=== PATIENT | male | born 1990 | race Caucasian/White ===

== ENCOUNTER 2024-10-19 08:36 | Outpatient (AMB) | payer OTHER, SELFPAY ==
--- NOTE | 2024-10-19 08:42 | MHC.PC.OV ---
Vital Signs 10/19/24 08:46 Height 5 ft 5 in Weight 179 lb 4 oz BMI 29.8 BP 110/60 Blood Pressure Location Lt brachial Position Sitting Respiration 16 Pulse 80 Pulse Source Pulse Oximeter Temp 98.0 F Temp Source Oral Pulse Oximetry (%) 95 Oxygen Delivery Method Room Air Intake Visit Reasons: Stomach pain , rectum bleeding Intake Note: abd pain and rectal bleeding Allergies No Known Allergies [No Known Allergies*] Allergy (Verified 10/19/24 08:43) Medication List - Last Reconciled 10/19/24 by Yvan Jack MD buprenorphine-naloxone 4-1 mg (Suboxone) 1 film sublingual BID bupropion HCl XL 150 mg PO DAILY HPI Stomach pain , rectum bleeding HPI Details 34 y/o male presents today with complaints of abdominal pain. Reports hard bowel movements. Reports blood on toilet paper. Patient?is?on?methadone?x5?years Tries?to?drink?plenty?of?fluids Had?been?using?senna?has?not?lately HPI Comments History of Present Illness Details Documentation assistance for Yvan Jack MD, was provided by Jean Carlos Barrientos,? Sorting Supervisor on 10/19/2024 at 9:11 AM EST. I, Dr. Jack, have read, observed, and verified documentation. ?? Questionnaire PHQ-9 Over the last 2 weeks, how often have you been bothered by any of the following problems? 1. Little interest or pleasure in doing things: not at all 2. Feeling down, depressed, or hopeless: not at all 3. Trouble falling or staying asleep, or sleeping too much: not at all 4. Feeling tired or having little energy: more than half the days 5. Poor appetite or overeating: more than half the days 6. Feeling bad about yourself - or that you are a failure or have let yourself or your family down: not at all 7. Trouble concentrating on things, such as reading the newspaper or watching television: not at all 8. Moving or speaking so slowly that other people could have noticed. Or the opposite - being so fidgety or restless that you have been moving around a lot more than usual: not at all 9. Thoughts that you would be better off or of hurting yourself in some way: not at all Total score: 4 Source: Developed by Drs. Arron Merritt, Jacob Turner and colleagues, with an educational dayan from [employer]. Thrive Questionnaire I am a: Patient What is your living situation today?: I have a steady place to live Within the past 12 months, did the food you bought not last and you didn't have the money to get more?: Sometimes True Within the past 12 months, did you worry whether your food would run out before you got money to buy more?: Sometimes True Do you have trouble paying for medicines?: No Do you have trouble getting transportation to medical appointments?: No Do you have trouble paying your heating and electricity bill?: No Do you have trouble taking care of your child, family member or friend?: No Do you have trouble with day-to-day activities such as bathing, preparing meals, shopping, managing finances, etc.?: No Are you currently unemployed and looking for a job?: No Are you interested in more education?: I choose not to answer this question Please select the resources that you would like help with: None Currently or been in a relationship where the following occur: I choose not to answer THRIVE Score: 2 AUDIT C Alcohol Use Questionnaire (AUDIT-C) 1. How often do you have a drink containing alcohol?: Never Total Score: 0 FERNANDA-7 AMB Questionnaire FERNANDA-7 Feeling nervous, anxious, or on edge: 0 = Not at all Not being able to stop or control worryin = Not at all Worrying too much about different things: 0 = Not at all Trouble relaxin = Not at all Being so restless that it is hard to sit still: 0 = Not at all Becoming easily annoyed or irritable: 0 = Not at all Feeling afraid as if something awful might happen: 0 = Not at all Total FERNANDA-7 score (0-4 normal; 5-9 mild; 10-14 moderate; 15-21 severe): 0 Source: Developed by Drs. Arron Merritt, Jacob Turner and colleagues, with an educational dayan from [employer]. Review of Systems Const Denies chills, Denies fatigue, Denies fever(s), Denies headache(s) and Denies weakness ENT Denies dizziness and Denies headache(s) Card Denies dyspnea Resp Denies cough, Denies dyspnea, Denies wheezing and Denies other (shortness of breath) GI Reports constipation Musc Denies numbness and Denies tingling Neuro Denies dizziness, Denies headache(s), Denies numbness, Denies tingling and Denies weakness Psych Denies anxiety and Denies depression Endo Denies fatigue Aller/Immun Denies wheezing Physical exam (Primary Care) Vital Signs: Last Vital Signs Temp 98.0 F 10/19/24 08:46 Pulse 80 10/19/24 08:46 Resp 16 10/19/24 08:46 BP 110/60 10/19/24 08:46 Pulse Ox 95 10/19/24 08:46 Oxygen Delivery Method Room Air 10/19/24 08:46 BMI result Body Mass Index 29.8 PHQ-9: PHQ-9 Score PHQ-9: Total score 4 10/19/24 08:59 Currently or been in a relationship where the following occur: I choose not to answer Const General: well developed; No acute distress Nutritional Appearance: well nourished Orientation/consciousness: patient oriented x3 [facility] Head: Yes normocephalic and Yes atraumatic Eyes General: appearance normal, both eyes and all related structures Pupils: Equal, round and reactive pupils present EOM: EOMs intact bilaterally Resp Effort & Inspection: normal respiratory effort Neuro General: patient oriented x3 and gait normal Cranial nerves: Yes Equal, round and reactive pupils present Psych Affect: normal affect Coding Level of Care Code New Pt Level 3 (70922) Diagnoses Constipation K59.00 Abdominal pain R10.9 Assessment & Plan Assessment & Plan (1) Constipation: Code(s): K59.00 - Constipation, unspecified Category: Medical Plan: Hard?bowel?movements?with?straining?and?abdominal?pain. Pain?at?anal?verge?with?bowel?movements.??Subsequent?blood?after?bowel?movement, primarily?on?TP. No?maroon?or?black?tarry?stools Likely?has?moderately?severe?diarrhea?secondary?to?methadone?use?and?decrease?water?intake?and?decrease?use?of?senna Increase?water?intake Can?also?try?some?prune?juice Will?give?him?a?script?for?MiraLax Keep?stools?soft Patient?notes?that?he?had?partial?workup?for?possible?Crohn's?disease?versus?IBS?but?says?this?was?never?completed.??Will?make?a?referral?to?GI Check?labs Call?or?return?to?office?if?not?improved?or?resolved - deferred?visual?inspection?today?but?would?do?so?if?this?does?not?resolve?with?the?above?interventions. (2) Abdominal pain: Code(s): R10.9 - Unspecified abdominal pain Category: Medical Plan: As?above Orders: Orders Lipid Panel Today R10.9 - Unspecified abdominal pain, Z00.00 - Encounter for general adult medical examination without abnormal findings TSH reflex Free T4 Today R10.9 - Unspecified abdominal pain, Z00.00 - Encounter for general adult medical examination without abnormal findings Microalbumin, Random (w Creat) Today I10 - Essential (primary) hypertension, R10.9 - Unspecified abdominal pain UA and rflx microscopic Today R10.9 - Unspecified abdominal pain, Z00.00 - Encounter for general adult medical examination without abnormal findings Comprehensive Met. Panel Today R10.9 - Unspecified abdominal pain Complete Blood Count Auto Diff Today R10.9 - Unspecified abdominal pain, Z00.00 - Encounter for general adult medical examination without abnormal findings Medications: New polyethylene glycol 3350 (Miralax) 17 grams PO DAILY 14 days 14 ea 0RF magnesium oxide 400 mg PO BEDTIME 30 days 30 tabs 1RF
[2024-10-19 08:46] VITALS: BP 110/60; PULSE 80; RESP 16; TEMP 36.7; O2SAT 95; BMI 29.8
== END 2024-10-19 09:11 | disposition home or self-care (01) ==
PROVIDERS: PCP Family Medicine; Visit Provider Family Medicine
DX: K59.00 Constipation, unspecified (principal); R10.9 Unspecified abdominal pain

== ENCOUNTER → 2024-10-19 08:36 | Outpatient (BNVA) | payer OTHER, SELFPAY | PROVIDERS: PCP Family Medicine; Visit Provider Family Medicine | DX: K59.00 Constipation, unspecified (principal); R10.9 Unspecified abdominal pain; I10 Essential (primary) hypertension | CPT/HCPCS: 36415; 80053; 80061; 81003; 82043; 82570; 84443; 85025; 99202 ==

== ENCOUNTER 2024-10-19 09:33 | Outpatient (REF) | payer OTHER, SELFPAY ==
[2024-10-19 11:25] LABS: MANUAL DIFF FLAG NO
[2024-10-19 11:29] LABS: Basophils Percent Auto 0.6 % (0-2); Eosinophils Absolute Auto 0.2 X10*3/uL (0.0-0.4); Eosinophils Percent Auto 3.3 % (0-4); Hematocrit 40.7 % (42.0-52.0); Hemoglobin 14.4 g/dl (14.0-18.0); Imm Gran Abs Auto 0.01 X10*3/uL (0.00-0.03); Imm Gran Pct Auto 0.2 % (0.0-0.4); Lymphocytes Absolute Auto 1.8 X10*3/uL (1.2-4.9); Lymphocytes Percent Auto 34.2 % (20-40); Mean Corpuscular HGB Conc 35.4 g/dl (31.0-36.0); Mean Corpuscular Hemoglobin 30.3 pg (27.0-33.0); Mean Corpuscular Volume 85.7 fL (80.0-98.0); Mean Platelet Volume 10.4 fL (9.4-12.4); Monocytes Absolute Auto 0.5 X10*3/uL (0.1-1.2); Monocytes Percent Auto 8.6 % (2-11); Neutrophils Absolute Auto 2.8 x10*3/uL (2.0-8.3); Neutrophils Percent Auto 53.1 % (45-73); Platelet Count 219 X10*3/uL (160-400); Red Blood Count 4.75 X10*6/uL (4.60-5.80); Red Cell Distribution Width 11.6 % (11.0-16.0); White Blood Count 5.2 X10*3/uL (4.8-10.8)
[2024-10-19 12:24] LABS: Alanine Aminotransferase 28 U/L (0-40); Albumin Level 4.5 g/dL (3.5-5.0); Alkaline Phosphatase 55 U/L (39-117); Anion Gap 9 (12-20); Aspartate Amino Transferase 24 U/L (5-37); Bilirubin Total 0.5 mg/dL (0.0-1.0); Blood Urea Nitrogen 18 mg/dL (9-16); Calcium 9.6 mg/dL (8.4-10.2); Carbon Dioxide 28 mmol/L (22-29); Chloride 109 mmol/L (96-108); Cholesterol 182 mg/dL (<200); Estimated Glomerular Filt Rate > 60; Glucose Random 91 mg/dL (60-115); HDL Cholesterol 39 mg/dL (>40); LDL Cholesterol Calculated 126 mg/dL (<100); Potassium 3.8 mmol/L (3.3-5.1); Sodium 142 mmol/L (135-145); Total Protein 6.9 g/dL (6.5-8.0); Triglycerides 89 mg/dL (<150)
[2024-10-19 12:28] LABS: TSH reflex Free T4 1.46 uIU/mL (0.32-4.0)
[2024-10-19 15:13] LABS: Appearance Urine Cloudy; Color Urine Dark Yellow; Glucose Urine UA Negative (Negative); Leukocyte Esterase Urine Negative (Negative); Nitrite Urine Negative (Negative); PH 5.5 (5.0-9.0); Specific Gravity - Urine >= 1.030 (1.005-1.025); Urine Blood Negative (Negative); Urine Ketones Trace mg/dL (Negative); Urine Protein Trace mg/dL (Neg-Trace)
[2024-10-19 15:40] LABS: Creatinine Urine 407.96 mg/dL; Microalbum/Creatinine Ratio Ur 4.9 ug/mg cr (<30)
== END 2024-10-19 09:34 | disposition home or self-care (01) ==
LOC: HO.WFDLDS 09:33
PROVIDERS: Visit Provider Family Medicine
DX: Z00.00 Encounter for general adult medical examination without abnormal findings (principal); R10.9 Unspecified abdominal pain; I10 Essential (primary) hypertension
CPT/HCPCS: 36415; 80053; 80061; 81003; 82043; 82570; 84443; 85025

== ENCOUNTER 2025-01-11 09:04 | Outpatient (AMB) | payer OTHER, SELFPAY ==
--- NOTE | 2025-01-11 09:16 | A.OFFPC_ITS ---
Vital Signs 01/11/25 09:19 Height 5 ft 5 in Weight 192 lb BMI 31.9 BP 120/70 Blood Pressure Location Rt brachial Position Sitting Respiration 12 Pulse 62 Pulse Source Pulse Oximeter Temp 98.8 F Temp Source Oral Pulse Oximetry (%) 97 Oxygen Delivery Method Room Air Intake Visit Reasons: f/u labs Intake Note: patient is scheduled for lab review and to re-establish care with pcp Technical Support Specialist Required: No Allergies No Known Allergies [No Known Allergies*] Allergy (Verified 01/11/25 09:17) Medication List - Last Reconciled 01/11/25 by Yvan Jack MD buprenorphine-naloxone 4-1 mg (Suboxone) 1 film sublingual BID bupropion HCl XL 150 mg PO DAILY magnesium oxide 400 mg PO BEDTIME 30 days HPI f/u labs HPI Details 34 y/o male presents to f/u labs. Labs drawn 10/19/24. Reviewed labs with pt. Hct 40.7%. Triglycerides 89. TC 182. LDL 126. HDL low at 39. TSH 1.46. Had complaints of constipation and abd. pain with some blood on TP after bowel movements. He notes blood in stools and constipation have improved. He notes he rarely sees blood on TP now. Questionnaire PHQ-9 Over the last 2 weeks, how often have you been bothered by any of the following problems? 1. Little interest or pleasure in doing things: not at all 2. Feeling down, depressed, or hopeless: not at all 3. Trouble falling or staying asleep, or sleeping too much: not at all 4. Feeling tired or having little energy: not at all 5. Poor appetite or overeating: not at all 6. Feeling bad about yourself - or that you are a failure or have let yourself or your family down: not at all 7. Trouble concentrating on things, such as reading the newspaper or watching television: not at all 8. Moving or speaking so slowly that other people could have noticed. Or the opposite - being so fidgety or restless that you have been moving around a lot more than usual: not at all 9. Thoughts that you would be better off or of hurting yourself in some way: not at all Total score: 0 Source: Developed by Drs. Arron Merritt, Kim B.W. Jacob Coleman and colleagues, with an educational dayan from [employer]. Thrive Questionnaire I am a: Patient What is your living situation today?: I have a steady place to live Within the past 12 months, did the food you bought not last and you didn't have the money to get more?: I choose not to answer this question Within the past 12 months, did you worry whether your food would run out before you got money to buy more?: I choose not to answer this question Do you have trouble paying for medicines?: No Do you have trouble getting transportation to medical appointments?: No Do you have trouble paying your heating and electricity bill?: No Do you have trouble taking care of your child, family member or friend?: No Do you have trouble with day-to-day activities such as bathing, preparing meals, shopping, managing finances, etc.?: No Are you currently unemployed and looking for a job?: No Are you interested in more education?: No Please select the resources that you would like help with: None Currently or been in a relationship where the following occur: I choose not to answer THRIVE Score: 0 AUDIT C Alcohol Use Questionnaire (AUDIT-C) 1. How often do you have a drink containing alcohol?: Never Total Score: 0 FERNANDA-7 AMB Questionnaire FERNANDA-7 Feeling nervous, anxious, or on edge: 0 = Not at all Not being able to stop or control worryin = Not at all Worrying too much about different things: 0 = Not at all Trouble relaxin = Not at all Being so restless that it is hard to sit still: 0 = Not at all Becoming easily annoyed or irritable: 0 = Not at all Feeling afraid as if something awful might happen: 0 = Not at all Total FERNANDA-7 score (0-4 normal; 5-9 mild; 10-14 moderate; 15-21 severe): 0 Source: Developed by Drs. Arron eMrritt, Jacob Turner and colleagues, with an educational dayan from [employer]. Review of Systems Const Denies chills, Denies fatigue, Denies fever(s), Denies headache(s) and Denies weakness ENT Denies dizziness and Denies headache(s) Card Denies dyspnea Resp Denies cough, Denies dyspnea, Denies wheezing and Denies other (shortness of breath) Musc Denies numbness and Denies tingling Neuro Denies dizziness, Denies headache(s), Denies numbness, Denies tingling and Denies weakness Psych Denies anxiety and Denies depression Endo Denies fatigue Aller/Immun Denies wheezing Physical exam (Primary Care) Vital Signs: Last Vital Signs Temp 98.8 F 01/11/25 09:19 Pulse 62 01/11/25 09:19 Resp 12 01/11/25 09:19 BP 120/70 01/11/25 09:19 Pulse Ox 97 01/11/25 09:19 Oxygen Delivery Method Room Air 01/11/25 09:19 BMI result Body Mass Index 31.9 PHQ-9: PHQ-9 Score PHQ-9: Total score 0 01/11/25 09:53 Currently or been in a relationship where the following occur: I choose not to answer Const General: well developed; No acute distress Nutritional Appearance: well nourished Orientation/consciousness: patient oriented x3 [facility] Head: Yes normocephalic and Yes atraumatic Eyes General: appearance normal, both eyes and all related structures Pupils: Equal, round and reactive pupils present EOM: EOMs intact bilaterally Resp Effort & Inspection: normal respiratory effort Neuro General: patient oriented x3 and gait normal Cranial nerves: Yes Equal, round and reactive pupils present Psych Affect: normal affect Coding Level of Care Code Est Pt Level 4 (23016) Diagnoses Borderline anemia D64.9 Abdominal pain R10.9 Constipation K59.00 Elevated LDL cholesterol level E78.00 Low HDL (under 40) E78.6 Assessment & Plan Assessment & Plan (1) Borderline anemia: Code(s): D64.9 - Anemia, unspecified Category: Medical Plan: Borderline?anemia?in?this?may?have?been?secondary?to?blood?in?stools. The?bleeding?has?significantly?decreased?with?keeping?stools?soft?however?he?diaz s?note?this?still?occurs Had?referred?him?to?Gastroenterology?and?they?had?reached?out?x3?but?did?not?ge t?a?hold?him.??I?have?given?the?patient?the?number?for?gastroenterology?and?he?w ill?make?the?appointment Will?recheck?CBC?and?we?can?discuss?at?next?visit.??Will?call?of?action?is?requi red?sooner (2) Abdominal pain: Code(s): R10.9 - Unspecified abdominal pain Category: Medical Plan: Resolved (3) Constipation: Code(s): K59.00 - Constipation, unspecified Category: Medical Plan: Still?has?some?issues?with?constipation?though?he?says?greatly?improved. Keep?working?at?good?hydration Follow-up?with?Gastroenterology (4) Elevated LDL cholesterol level: Code(s): E78.00 - Pure hypercholesterolemia, unspecified Category: Medical Plan: Elevated?LDL?cholesterol?and?I?encouraged?a?diet?lower?in?saturated?fats?and?cho lesterol (5) Low HDL (under 40): Code(s): E78.6 - Lipoprotein deficiency Category: Medical Plan: Mildly?low?HDL?and?encouraged?exercise Orders: Orders Complete Blood Count Auto Diff Today D64.9 - Anemia, unspecified, Z00.00 - Encounter for general adult medical examination without abnormal findings Basic Metabolic Panel Today K59.00 - Constipation, unspecified, Z00.00 - Encounter for general adult medical examination without abnormal findings
[2025-01-11 09:19] VITALS: BP 120/70; PULSE 62; RESP 12; TEMP 37.1; O2SAT 97; BMI 31.9
== END 2025-01-11 10:00 | disposition home or self-care (01) ==
LOC: HO.HMCFM 09:05
PROVIDERS: PCP Family Medicine; Visit Provider Family Medicine
DX: D64.9 Anemia, unspecified (principal); R10.9 Unspecified abdominal pain; K59.00 Constipation, unspecified; E78.00 Pure hypercholesterolemia, unspecified; E78.6 Lipoprotein deficiency

== ENCOUNTER → 2025-01-11 09:04 | Outpatient (BNVA) | payer OTHER, SELFPAY | PROVIDERS: PCP Family Medicine; Visit Provider Family Medicine | DX: D64.9 Anemia, unspecified (principal); R10.9 Unspecified abdominal pain; K59.00 Constipation, unspecified; E78.00 Pure hypercholesterolemia, unspecified; E78.6 Lipoprotein deficiency | CPT/HCPCS: 99212 ==

== ENCOUNTER 2025-05-16 10:50 | Outpatient (AMB) | payer OTHER, SELFPAY ==
--- NOTE | 2025-05-16 10:53 | MHC.OFFVIS ---
Vital Signs 05/16/25 10:55 Height 5 ft 5 in Weight 182 lb 15.739 oz BMI 30.4 BP 126/56 L Blood Pressure Location Lt brachial Position Sitting Pulse 74 Intake Visit Reasons: Abdominal Pains Intake Note: [place] presents in the office as a new patient for abdominal pains. CC: States that he is concerned more so of hemorrhoids. States there is bleeding here and there but mainly discomfort and not going to the bathroom as regular as he should. 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 Reports takes senna but doesnt help. Has a BM once or twice a week. Has to strain. Occasionally notices bulging hemorrhoids with occasional bleeding. Diet is low in fiber. 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 PFSH Surgical History (Updated 05/16/25 @ 10:58 by VIOLET Dupree) Hx of colonoscopy History of esophagogastroduodenoscopy (EGD) Family History (Updated 05/16/25 @ 10:58 by VIOLET Dupree) Maternal Grandfather Colon cancer Paternal Grandfather Stomach cancer Review of Systems Const All systems reviewed & are unremarkable except as noted in HPI and below Physical Exam Exam Exam: No apparent distress Nonicteric Abdomen soft, nondistended rectal: no anal tag or fissure noted on inspection, small ext hemorrhoid, large internal hemorrhoids withotu any blood on gloved finger Alert and oriented x3, normal gait Vital Signs: Last Vital Signs Pulse 74 05/16/25 10:55 BP 126/56 L 05/16/25 10:55 BMI result Body Mass Index 30.4 Assessment & Plan Assessment & Plan (1) Constipation: Code(s): K59.00 - Constipation, unspecified Category: Medical (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 However, given his report of mild intestinal malrotation, can not rule out dysmotility leading to slow transit constipation. Plan: -increase hydration and fiber intake -start MiraLax once daily -if no response in 2 weeks to these interventions, add senna 2 tablets in the morning -CT abdomen and pelvis with contrast for anatomical evaluation Follow-up 2 months Orders: Orders CT abdomen pelvis w IV con Today Q43.3 - Congenital malformations of intestinal fixation Coding Level of Care Code New Pt Level 4 (77263) Diagnoses Constipation K59.00 Malrotation colon Q43.3
[2025-05-16 10:55] VITALS: BP 126/56; PULSE 74; BMI 30.4
== END 2025-05-16 11:46 | disposition home or self-care (01) ==
LOC: HO.HGI 10:51
PROVIDERS: PCP Family Medicine; Visit Provider Internal Medicine
DX: K59.00 Constipation, unspecified (principal); Q43.3 Congenital malformations of intestinal fixation
CPT/HCPCS: 99204

== ENCOUNTER → 2025-05-16 10:50 | Outpatient (BNVA) | payer OTHER, SELFPAY | PROVIDERS: PCP Family Medicine; Visit Provider Internal Medicine | DX: Q43.3 Congenital malformations of intestinal fixation (principal); K59.00 Constipation, unspecified | CPT/HCPCS: 99202 ==

== ENCOUNTER 2025-06-16 09:05 | Outpatient (REF) | payer OTHER, SELFPAY ==
--- NOTE | ~2025-06-16 | CT_ITS ---
EXAMINATION: CT ABDOMEN AND PELVIS WITH CONTRAST CLINICAL INFORMATION: Congenital malformations of the intestinal fixation. Q43.3 COMPARISON: None available. TECHNIQUE: Multidetector volumetric images were obtained from the superior aspect of the liver through the pubic symphysis following administration 85 mL of Omnipaque 350 intravenous contrast. Sagittal and coronal reformatted images were obtained on the technologist's workstation. Oral contrast: No This CT examination was performed using dose optimization techniques as appropriate, variously including the following: *Automated exposure control *Adjustment of mA and/or kV according to patient size (this includes techniques or standardized protocols for targeted exams where dose is matched to indication/reason for exam; i.e. extremities or head) *Use of iterative reconstruction technique DLP: 431 mGy centimeter. FINDINGS: LUNG BASES: No acute airspace disease or discrete pulmonary nodules in the [id number]. LIVER, GALLBLADDER, AND BILIARY TREE: Liver measures 15 cm. Subcentimeter hypodensities too small to be fully characterized. Main portal veins, hepatic veins and intrahepatic portion of the IVC are patent. Gallbladder is nondistended. No pericholecystic fluid collection or gallbladder wall thickening. No intrahepatic or extrahepatic biliary ductal dilatation. PANCREAS: No focal mass. No peripancreatic fluid collection. No main pancreatic ductal dilatation. SPLEEN: 11 cm. No focal mass. ADRENAL GLANDS: No nodular lesions. KIDNEYS AND URETERS: No hydronephrosis. No gross renal mass. Normal enhancement pattern of the renal parenchyma. BLADDER: Fluid-filled nearly collapsed. GASTROINTESTINAL TRACT: Sutures in the medial aspect of the cecum likely prior appendectomy. Abundant stool. No intestinal obstruction pattern. No intestinal wall thickening. Gas and fluid-filled mildly prominent small bowel loops. No pneumatosis intestinalis. No ascites. No pneumoperitoneum. No peripheral enhancing fluid collection, peritoneal cavity. ABDOMINAL WALL: Small fat-containing umbilical hernia. LYMPH NODES: No mesenteric or retroperitoneal lymphadenopathy. VASCULAR: No aneurysm or dissection, abdominal aorta. No gross calcified plaques. PELVIC VISCERA: Not enlarged. OSSEOUS STRUCTURES: Probable bony island lesions in the right femur. Sclerosis and the sacroiliac joints, right greater than left. No acute fracture or listhesis in the axial skeleton. Spina bifida occulta, S1, congenital. CT/CT abdomen pelvis w IV con IMPRESSION: Small fat-containing umbilical hernia. Fleischner guidelines were followed. Electronically signed by: Chucho Lea MD 06/16/2025 09:59 AM EDT RP
[2025-06-16] MEDS: iohexoL 350 MG/ML 100 ML INFUS..BTL IV (09:49)
== END 2025-06-16 09:06 | disposition home or self-care (01) ==
LOC: HO.CT 09:05
PROVIDERS: Visit Provider Internal Medicine
DX: Q43.3 Congenital malformations of intestinal fixation (principal)
CPT/HCPCS: 74177; Q9967

== ENCOUNTER → 2025-06-16 09:08 | Outpatient (BNV) | payer OTHER, SELFPAY | PROVIDERS: Visit Provider Radiology Diagnostic Radiology | DX: K42.9 Umbilical hernia without obstruction or gangrene (principal) | CPT/HCPCS: 74177 ==

== ENCOUNTER 2025-09-14 13:59 | Outpatient (AMB) | payer OTHER, SELFPAY ==
[2025-09-14 14:06] VITALS: BP 80/51; PULSE 92; BMI 31.1
--- NOTE | 2025-09-14 14:06 | MHC.OFFVIS ---
Vital Signs 09/14/25 14:06 Height 5 ft 5 in Weight 187 lb BMI 31.1 BP 80/51 L Blood Pressure Location Lt brachial Pulse 92 Intake Visit Reasons: 2 mo constipation ( cancelled 07/18) Intake Note: Patient follow up for constipation. 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 Reports takes senna but doesnt help. Has a BM once or twice a week. Has to strain. Occasionally notices bulging hemorrhoids with occasional bleeding. Diet is low in fiber. 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 09/14/25: The patient is here to follow-up on constipation and hemorrhoids, to review recent CT scan results, and to discuss cancer screening. The patient was previously instructed to use fiber, senna, and MiraLax for constipation, which has resulted in improved bowel regularity to daily movements. Has not had any rectal bleeding since. There is no pain with sitting or movement. A recent CT scan, ordered to investigate a prior concern for intestinal malrotation, did not show evidence of malrotation. The patient has a significant family history of cancer on the patient's mother's side, including a grandmother who had both colon cancer and stomach cancer. Pt wonders if he should undergo colo given intermittent rectal bleeding and fam hx. --- Pt was informed and consented to the use of ambient scribe for this encounter. --- [facility] Surgical History Hx of colonoscopy History of esophagogastroduodenoscopy (EGD) Family History Maternal Grandfather Colon cancer Paternal Grandfather Stomach cancer Review of Systems Const All systems reviewed & are unremarkable except as noted in HPI and below Physical Exam Exam Exam: No apparent distress Nonicteric Abdomen soft, nondistended Alert and oriented x3, normal gait Vital Signs: Last Vital Signs Pulse 92 09/14/25 14:06 BP 80/51 L 09/14/25 14:06 BMI result Body Mass Index 31.1 Assessment & Plan Assessment & Plan (1) Constipation: Code(s): K59.00 - Constipation, unspecified Category: Medical (2) Hemorrhoids: Code(s): K64.9 - Unspecified hemorrhoids Category: Medical (3) Family history of colon cancer: Code(s): Z80.0 - Family history of malignant neoplasm of digestive organs Category: Medical (4) Borderline anemia: Code(s): D64.9 - Anemia, unspecified Category: Medical (5) Family history of gastric cancer: Code(s): Z80.0 - Family history of malignant neoplasm of digestive organs Category: Medical Plan 1. Constipation and Hemorrhoids - The patient's constipation has improved significantly on the regimen of fiber, senna, and MiraLax, with bowel movements now occurring daily. - Associated rectal bleeding is now rare and minimal. 2. Cancer Screening - The patient expressed concern due to a family history of colon cancer and stomach cancer in a grandmother. - While the patient does not strictly meet guideline criteria for early screening, a colonoscopy will be ordered due to additional history of rectal bleeding. - An upper endoscopy for gastric cancer screening is not indicated at this time, but H. pylori testing has been ordered. Folow up after colo as needed. Orders: Orders H pylori Ag Stool Today Z80.0 - Family history of malignant neoplasm of digestive organs Referrals GI Procedure Notification K62.5 - Hemorrhage of anus and rectum, Z80.0 - Family history of malignant neoplasm of digestive organs Medications: New peg 3350-electrolytes 236-22.74-6.74 -5.86 gram (Golytely) as per split prep instructions, until fecal effluent is clear 240 mL PO Q10M 4,000 mL 0RF colonoscopy Coding Level of Care Code Est Pt Level 4 (39166) Diagnoses Constipation K59.00 Hemorrhoids K64.9 Family history of colon cancer Z80.0 Borderline anemia D64.9 Family history of gastric cancer Z80.0
== END 2025-09-14 15:20 | disposition home or self-care (01) ==
PROVIDERS: PCP Family Medicine; Visit Provider Internal Medicine
DX: K59.00 Constipation, unspecified (principal); K64.9 Unspecified hemorrhoids; Z80.0 Family history of malignant neoplasm of digestive organs; D64.9 Anemia, unspecified
CPT/HCPCS: 99214

== ENCOUNTER → 2025-09-14 13:59 | Outpatient (BNVA) | payer OTHER, SELFPAY | PROVIDERS: PCP Family Medicine; Visit Provider Internal Medicine | DX: K59.00 Constipation, unspecified (principal); K64.9 Unspecified hemorrhoids; D64.9 Anemia, unspecified; Z80.0 Family history of malignant neoplasm of digestive organs | CPT/HCPCS: 99212 ==